=== PATIENT | female | born 1955 | race Caucasian/White ===

== ENCOUNTER 2017-05-21 14:29 | Emergency (ER) | payer OTHER ==
[~2017-05-21] VITALS: Ht 149.9 cm; Wt 58.5 kg
[~2017-05-21 14:29] MED LIST: ATOR20TA PO; ORE25 PO; SYN.1 PO; TEMA15CA24 PO
[2017-05-21 14:33] VITALS: BP 179/98
[2017-05-21] MEDS ORDERED: NACL 0.9% 1,000 ML IV ONE (15:05)
[2017-05-21 15:54] LABS: BASOPHILS # (AUTO) 0.1 K/uL (0.00-0.22); BASOPHILS % (AUTO) 1.1 % (0.0-2.0); EOSINOPHILS % (AUTO) 0.7 % (0.0-4.0); HEMATOCRIT 43.7 % (36-48); HEMOGLOBIN 14.7 g/dL (12.0-16.0); LYMPHOCYTES # (AUTO) 2.1 K/uL (2.5-16.5); LYMPHOCYTES % (AUTO) 27.4 % (20.5-51.1); MEAN CORPUSCULAR HEMOGLOBIN 32 pg (27-31); MEAN CORPUSCULAR HGB CONC 34 g/dL (33-37); MEAN CORPUSCULAR VOLUME 96.2 fL (80-94); MONOCYTES # (AUTO) 0.7 K/uL (0.8-1.0); MONOCYTES % (AUTO) 9.2 % (1.7-9.3); NEUTROPHILS # (AUTO) 4.7 K/uL (1.8-7.7); NEUTROPHILS % (AUTO) 61.6 % (42.2-75.2); PLATELET COUNT (AUTO) 232 K/uL (140-450); RED BLOOD CELL COUNT(AUTO) 4.55 MIL/uL (4.20-5.40); RED CELL DISTRIBUTION WIDTH 13.6 % (11.6-13.7); WHITE BLOOD COUNT (AUTO) 7.5 K/uL (4.8-10.8)
[2017-05-21 16:04] LABS: ANION GAP 16.8 (8-16); CARBON DIOXIDE 25.8 mmol/L (21-32); CREATININE 0.7 mg/dL (0.6-1.3); POTASSIUM 3.6 mmol/L (3.5-5.1)
[2017-05-21 16:09] LABS: APPEARANCE,URINE CLEAR (CLEAR); BILIRUBIN,URINE NEGATIVE (NEGATIVE); BLOOD, URINE TRACE-I (NEGATIVE); COLOR,URINE YELLOW (YELLOW); LEUKOCYTE ESTERASE ,URINE NEGATIVE (NEGATIVE); NITRITE, URINE NEGATIVE (NEGATIVE); PH,URINE 5.5 (5.0-9.0); UGLUCOSE NEGATIVE (NEGATIVE)
[2017-05-21 16:18] LABS: ALBUMIN 4.3 g/dL (3.4-5.0); FREE T4 (FREE THYROXINE) 1.13 ng/dL (0.76-1.46); THYROID STIMULATING HORMONE 7.46 uIU/mL (0.34-3.74); TOTAL BILIRUBIN 0.4 mg/dL (0.0-1.0)
[2017-05-21 17:40] VITALS: BP 168/97
== END 2017-05-21 17:40 | disposition home or self-care (01) ==
LOC: MED 14:29
DX: J40 Bronchitis, not specified as acute or chronic (principal); E86.0 Dehydration; I10 Essential (primary) hypertension; E78.00 Pure hypercholesterolemia, unspecified; G47.00 Insomnia, unspecified
CPT/HCPCS: 36415; 71045; 80053; 81003; 84439; 84443; 85025; 96360; 99285; J7030; Q0092

== ENCOUNTER 2018-12-23 10:08 | Emergency (ER) | payer OTHER ==
[~2018-12-23] VITALS: Ht 149.9 cm; Wt 61.2 kg
[2018-12-23 10:09] VITALS: BP 163/92
--- NOTE | 2018-12-23 10:12 | NUR ---
PT WHEELCHAIRED TO BED 9
--- NOTE | 2018-12-23 10:20 | NUR ---
63/F bib son for evalution of left knee pain for the past 3 weeks. Pt denies any injury or fall. Pt states the pain worsened today. Pt noted with an jeremy wrap to left knee. Pt states she is unable to place any weight on leg and c/o worsening pain to left leg.
--- NOTE | 2018-12-23 11:20 | NUR ---
Patient being evaluated by physician at bedside.
[2018-12-23] MEDS ORDERED: KETOROLAC 60 MG/2 ML VIAL IM ONE (11:30)
--- NOTE | 2018-12-23 11:52 | NUR ---
PT ACCEPTED AJ WRAP ON LEFT KNEE BUT REFUSED TO USE CRUTCHES. STATES IT IS TOO PAINFUL TO STAND.
--- NOTE | 2018-12-23 12:43 | NUR ---
SON PRISCA WILL COME TO PICK PT UP IN 10 MIN.
[2018-12-23 13:10] VITALS: BP 132/88
--- NOTE | 2018-12-23 13:10 | NUR ---
Patient discharged with v/s stable. Written and verbal after care instructions given and explained. Patient alert, oriented and verbalized understanding of instructions. Wheel chair assisted to car by myself. All questions addressed prior to discharge. ID band removed. Patient advised to follow up with PMD. Rx of Motrin 800mg given. Patient educated on indication of medication including possible reaction and side effects. Opportunity to ask questions provided and answered.
== END 2018-12-23 13:10 | disposition home or self-care (01) ==
LOC: MED 10:08
DX: M25.562 Pain in left knee (principal); I10 Essential (primary) hypertension; E03.9 Hypothyroidism, unspecified; Z79.899 Other long term (current) drug therapy
CPT/HCPCS: 73562; 73590; 96372; 99283; J1885

== ENCOUNTER 2018-12-29 15:37 | Outpatient (CLI) | payer OTHER | END 2018-12-29 19:43 | disposition home or self-care (01) | LOC: MUS 15:37 | PROVIDERS: ATTEND Family Medicine | DX: M79.605 Pain in left leg (principal) | CPT/HCPCS: 93971; Q0092 ==

== ENCOUNTER 2020-10-14 15:21 | Outpatient (CLI) | payer OTHER ==
[~2020-10-14 15:21] MED LIST changes: +HYDR-4004 PO; -ORE25 PO
== END 2020-10-14 20:52 | disposition home or self-care (01) ==
LOC: MRD 15:21
PROVIDERS: ATTEND Family Medicine
DX: M47.814 Spondylosis without myelopathy or radiculopathy, thoracic region (principal)
CPT/HCPCS: 71046